=== PATIENT | female | born 1980 | race Caucasian/White ===

== ENCOUNTER 2019-05-22 21:45 | Emergency (ER) | payer SELFPAY ==
--- NOTE | 2019-05-22 21:59 | Emergency Department Report ---
Blank Doc - Documentation Documentation: This is a 39-year-old female that presents with mental health disorder. Stated has been out of her psych meds. Denies any SI/HI. This initial assessment/diagnostic orders/clinical plan/treatment(s) is/are subject to change based on patient's health status, clinical progression and re- assessment by fellow clinical providers in the ED. Further treatment and workup at subsequent clinical providers discretion. Patient/guardians urged not to elope from the ED as their condition may be serious if not clinically assessed and managed. Initial orders include: 1- Patient sent to MAIN ED for further evaluation and treatment 2- director geothermal operations was notified to have patient be brought back [facility]. 3- RN was notified to keep patient as close range and observation until room available
[2019-05-22 22:01] VITALS: BP 103/58
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
[2019-05-22 22:55] LABS: Bacteria,Urine 1+ /HPF (Negative); Bilirubin,Urine NEG (Negative); Blood,Urine SM (Negative); Color,Urine Yellow (Yellow); Protein,Urine <15 mg/dL mg/dL (Negative); WBC,Urine > 182.0 /HPF (0.0-6.0)
[2019-05-22 22:58] LABS: Basophils % (Auto) 0.5 % (0.0-1.8); Eosinophils % (Auto) 0.6 % (0.0-4.3); Hematocrit 37.6 % (30.3-42.9); Hemoglobin 12.6 gm/dl (10.1-14.3); Lymphocytes # (Auto) 2.1 K/mm3 (1.2-5.4); Lymphocytes % (Auto) 27.3 % (13.4-35.0); Mean Corpuscular HGB Conc 34 % (30-34); Mean Corpuscular Volume 96 fl (79-97); Monocytes # (Auto) 0.7 K/mm3 (0.0-0.8); Monocytes % (Auto) 9.3 % (0.0-7.3); Platelet Count 351 K/mm3 (140-440); Red Blood Count 3.91 M/mm3 (3.65-5.03); Red Cell Distribution Width 15.9 % (13.2-15.2)
[2019-05-22 22:59] LABS: Amphetamine Screen,Urine PRESUMPTIVE NEGATIVE; Benzodiazepines Screen,Urine PRESUMPTIVE NEGATIVE; Methadone Screen,Urine PRESUMPTIVE NEGATIVE; Opiate Screen,Urine PRESUMPTIVE NEGATIVE
[2019-05-22 23:10] LABS: Cannabinoid Screen,Urine PRESUMPTIVE POSITIVE; Cocaine Screen,Urine PRESUMPTIVE POSITIVE
[2019-05-22 23:25] LABS: Alanine Aminotransferase 11 units/L (7-56); Albumin 3.7 g/dL (3.9-5); BUN/Creatinine Ratio 9; Blood Urea Nitrogen 7 mg/dL (7-17); Calcium 8.7 mg/dL (8.4-10.2); Hemolysis Index 4
[2019-05-23] MEDS ORDERED: levoFLOXacin 500 MG TAB PO ONE (00:32)
[2019-05-23] MEDS ORDERED: levoFLOXacin 500 MG TAB ONE (02:54)
== END 2019-05-23 03:02 | disposition home or self-care (01) ==
LOC: ED 21:45 → EEVIPCON 21:45 → ED 05-23 03:02
DX: F31.9 Bipolar disorder, unspecified (principal); F20.9 Schizophrenia, unspecified; N39.0 Urinary tract infection, site not specified; F17.200 Nicotine dependence, unspecified, uncomplicated
CPT/HCPCS: 36415; 80053; 80307; 80320; 81001; 82550; 83735; 84702; 84703; 85025; 93005; 93010; G0480